=== PATIENT | female | born 2000 | race Caucasian/White ===

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

== ENCOUNTER 2021-05-14 12:26 | Emergency (ER) | payer OTHER ==
[~2021-05-14] VITALS: Ht 147.3 cm; Wt 48.1 kg
== END 2021-05-14 14:52 | disposition home or self-care (01) ==
LOC: ER 12:26 → EMR PED 12:30 → ER 12:30 → EMR PED 14:52
DX: S92.912A Unspecified fracture of left toe(s), initial encounter for closed fracture (principal); W18.49XA Other slipping, tripping and stumbling without falling, initial encounter; Y92.89 Other specified places as the place of occurrence of the external cause

== ENCOUNTER → 2022-04-22 | Emergency (ER) | payer OTHER ==
[~2022-04-22] VITALS: Ht 149.9 cm; Wt 47.6 kg
== END | disposition left against medical advice (07) ==
LOC: ER 01:48
DX: Z53.21 Procedure and treatment not carried out due to patient leaving prior to being seen by health care provider (principal)